=== PATIENT | female | born 1940 | race Caucasian/White ===

== ENCOUNTER 2022-04-06 20:32 | Emergency (ER) | payer MEDICARE, BC ==
[2022-04-06] MEDS ORDERED: Bacitracin Oint 1 GM U/D Packet TOP ONE (22:59)
== END 2022-04-07 00:19 | disposition home or self-care (01) ==
LOC: JP.ED 20:32
DX: S51.011A Laceration without foreign body of right elbow, initial encounter (principal); W07.XXXA Fall from chair, initial encounter
CPT/HCPCS: 12002; 99281; 99282